=== PATIENT | male | born 1950 | race Caucasian/White ===

== ENCOUNTER 2017-06-17 10:58 | Day surgery (SDC) | payer BC ==
--- NOTE | 2017-06-16 16:20 | EKG ---
Test Date: 2017-06-16 Test Time: 12:51:25 [employer] Lead: ZEE MEASUREMENT RESULTS: Intervals: Rate: 68 [place]: 100 QRSD: 84 QT: 460 QTc: 489 Wilder: P: 13 [place]: 100 QRS: 46 T: 30 INTERPRETIVE STATEMENTS: Sinus rhythm with premature atrial complexes Prolonged QT Abnormal ECG No previous ECG available for comparison Electronically Signed On 06-16-17 16:19:49 CDT by Salvador Wiley
[2017-06-17] MEDS ORDERED: OXYMETAZOLINE HCL 0.05% 30ML NAS ONE ×5 (11:39→11:57)
[2017-06-17] MEDS ORDERED: Ringers Lactate 1,000 ML IV ONE ×2 (11:39→14:53)
[2017-06-17] MEDS ORDERED: NA CHLORIDE 0.9% 500 ML ONE (11:56)
[2017-06-17] MEDS ORDERED: LIDOCAINE 1% W/EPI 1:100,000 MDV 50 ML VIAL ONE (11:56)
[2017-06-17] MEDS ORDERED: ROCURONIUM 50 MG/5 ML VIAL IV ONE ×2 (12:11→13:40)
[2017-06-17] MEDS ORDERED: LIDOCAINE 1% MPF 5 ML VIAL ONE (12:11)
[2017-06-17] MEDS ORDERED: PROPOFOL 200 MG/20 ML VIAL IV ONE (12:11)
[2017-06-17] MEDS ORDERED: FENTANYL CITR 250 MCG/5 ML ONE (12:11)
[2017-06-17] MEDS ORDERED: MIDAZOLAM HCL 2 MG/2 ML INJ ONE (12:11)
[2017-06-17] MEDS ORDERED: ONDANSETRON 4 MG/2 ML VIAL ONE ×2 (13:23→14:55)
[2017-06-17] MEDS ORDERED: DEXAMETHASONE 10 MG/ML VIAL ONE (13:23)
[2017-06-17] MEDS ORDERED: KETOROLAC 30 MG/ML INJ ONE (14:55)
[2017-06-17] MEDS ORDERED: NEOSTIGMINE 1 MG/ML -5 ML SYRINGE ONE (14:55)
[2017-06-17] MEDS ORDERED: GLYCOPYRROLATE 0.2 MG/ML SYR ONE (14:55)
--- NOTE | 2017-06-21 18:12 | OP ---
Date of Procedure: 06/17/2017 Surgeon: Lianna Manuel MD Preoperative Diagnosis: Chronic rhinosinusitis with nasal polyps. Postoperative Diagnosis: Chronic rhinosinusitis with nasal polyps. Procedure: Bilateral nasal endoscopy with total ethmoid and frontal sinusotomy and maxillary antrost cindy with [employer] navigation. Description Of Procedure: The patient was brought to the operating room. He was placed under genera l anesthesia via oral endotracheal tube. The head of bed was turned 90 degrees and the patient's ty al hairs were trimmed. The nasal cavity was packed with Afrin-soaked pledgets. The Sagence headpie ce was secured to the patient's forehead and registration was performed using the laser pointer in [facility] with newspaper photo editor's instructions. Accuracy was confirmed by [id number] confirmation inc luding the glabella, the tip of the nose, the base of the columella, and the bilateral lateral canthi . Calibration was felt to be very good. The straight and curved navigation suctions were calibrated in accordance with the newspaper photo editor's direct instructions and accuracy was confirmed by the tip of t he nose in the glabella and was felt to be very good. Nasal pledgets were removed and the nasal cavi ty was visualized using a 0-degree endoscope. The middle meatus and nasal cavity on the left side we re completely obstructed by polyps. A microdebrider was used to perform polypectomy. After removal of polyps from the middle meatus, the middle turbinate was visualized. Afrin-soaked pledgets were ap plied to the middle meatus to aid in hemostasis and attention was turned to the right side. The midd le meatus was partially obstructed with polypoid tissue on the lateral aspect of the middle turbinate . This was removed with the microdebrider. The previous maxillary antrostomy was noted, but there w ere significant polyps within the prior antrostomy. These were removed using the microdebrider and 9 0-degree Blakesley. After removal of polyps, the maxillary antrostomy was better visualized. Afrin- soaked pledgets were applied to aid in hemostasis. Attention was returned to the left side. After r emoval of the pledgets, the 30 and 70-degree scopes were used to visualize the lateral nasal wall and enlarge the maxillary antrostomy by removal of polyp and polypoid tissue. The polyps were extensive in this area and removal resulted in moderate degree of bleeding. Adequate maxillary antrostomy was created and Afrin-soaked pledgets were applied. While awaiting effect of Afrin, the right side was readdressed. Polyps from the ethmoid cavity were removed using the microdebrider and the bony partit ions were removed using straight 45 and 90-degree Blakesley. Visualization during dissection was aguilar ited by the degree of oozing requiring frequent packing with Afrin-soaked pledgets. The navigation s uction was used to aid in identification of the skull base and lamina and careful dissection was made along the skull base using 30 and 70-degree scope. Using a 70-degree scope with [id number] and s nina-to-side Giraffe, the frontal sinusotomy was created by removal of polypoid tissue and bony fragme nts in the frontal recess. Afrin-soaked pledgets were applied and attention was returned to the left side. A total ethmoidectomy was applied, but complete removal of all bony partitions was difficult to confirm due to degree of bleeding. Due to the degree of oozing, the decision was made to truncate the procedure to a mild degree along the posterior skull base and lamina regions. Dissection of the frontal recess was feasible under 70-degree endoscopic guidance using [id number]-iona and [id number]-[id number] Giraffe instruments. The mucosa of the frontal recess was significantly edematous and effort was ma de to avoid and complete mucosalization of the frontal recess. Instead, a propel mini steroid elutin g stent was placed under endoscopic guidance into the frontal recess on the right and the left side. A propel standard-sized steroid eluting stent was placed into the bilateral ethmoid cavities to prov nina local drug delivery during the healing. Due to persistent oozing, a small piece of Xerogel disso lvable nasal dressing was placed within the left ethmoid cavity. After this, the oozing was signific antly decreased. The nasopharynx was thoroughly suctioned. The pledget counts were confirmed as cor rect and the patient was brought to the recovery room in stable condition after extubation. Disposition: The patient will be discharged home later today in the care of his family and follow up with Dr. Manuel in 10-14 days for removal of packing, stents and assessment of perioperative healin g.. SH/MODL Voice ID: [id number] Report ID: [id number]
== END 2017-06-17 16:20 | disposition home or self-care (01) ==
LOC: OR 10:58
PROVIDERS: ATTEND Otolaryngology
PROC: 09BT8ZZ Excision of Left Frontal Sinus, Via Natural or Artificial Opening Endoscopic (ICD-10-PCS; 2017-06-17)
PROC: 09BV8ZZ Excision of Left Ethmoid Sinus, Via Natural or Artificial Opening Endoscopic (ICD-10-PCS; principal; 2017-06-17 12:30)
DX: J32.2 Chronic ethmoidal sinusitis (principal); J32.1 Chronic frontal sinusitis; J33.8 Other polyp of sinus
CPT/HCPCS: 87070; 87205; 88304; 88305; 88312; 93005; J1100; J2250; J2405; J2710